=== PATIENT | male | born 1990 | race African-American/Black ===

== ENCOUNTER 2019-05-14 12:44 | Outpatient (CLI) | payer MEDICAID ==
--- NOTE | 2019-05-15 08:54 | General Progress Note ---
Assessment/Plan Assessment/Plan: UC on pred prakash on Apriso $ tabs RTC 3 months Subjective ROS Limited/Unobtainable: Yes Objective General Appearance: alert EENT: normal ENT inspection Neck: supple Cardiovascular: normal rate Respiratory/Chest: decreased breath sounds Abdomen: normal bowel sounds, non tender, soft Extremities: non-tender Ganga Leung MD May 15, 2019 08:54
[2019-05-16] MEDS ORDERED: APRISO0.375 GM PO (13:54)
[2019-05-16] MEDS ORDERED: PREDNISONE10 MG ORAL (13:54)
== END 2019-05-14 14:44 | disposition home or self-care (01) ==
LOC: PAN 12:44
DX: K51.90 Ulcerative colitis, unspecified, without complications (principal)
CPT/HCPCS: G0463

== ENCOUNTER 2019-08-13 13:14 | Outpatient (CLI) | payer MEDICAID ==
[~2019-08-13 13:14] MED LIST: APRISO0.375 GM PO; PREDNISONE10 MG ORAL
[2019-08-13 13:20] VITALS: BP 101/56
--- NOTE | 2019-08-13 13:54 | General Progress Note ---
Assessment/Plan Assessment/Plan: Progress Note date and time: 05/15/19 0854 Assessment/Plan Assessment/Plan: UC on Apriso 4 tabs RTC 3 months Subjective ROS Limited/Unobtainable: Yes Objective Last 24 Hour Vital Signs Date Time Temp Pulse Resp B/P (MAP) Pulse Ox O2 Delivery O2 Flow Rate FiO2 08/13/19 13:20 98.5 84 16 101/56 (71) 100 General Appearance: alert EENT: normal ENT inspection Neck: supple Cardiovascular: normal rate Respiratory/Chest: decreased breath sounds Abdomen: normal bowel sounds, non tender, soft Extremities: non-tender Ganga Leung MD Aug 13, 2019 13:54
== END 2019-08-13 15:14 | disposition home or self-care (01) ==
LOC: PAN 13:14
DX: K51.90 Ulcerative colitis, unspecified, without complications (principal)
CPT/HCPCS: 99212

== ENCOUNTER 2019-11-21 12:30 | Outpatient (CLI) | payer MEDICAID ==
--- NOTE | 2019-11-21 19:00 | Progress Note ---
DATE: 11/21/2019 CHIEF COMPLAINT: Rectal bleeding. HISTORY OF PRESENT ILLNESS: This is a 29-year-old male with history of ulcerative colitis, on Apriso 4 tablets a day. Apparently he has been taking medication for 10 days and having flare up. PHYSICAL EXAMINATION: GENERAL: A well-developed male, in no acute distress. HEENT: Normocephalic, atraumatic. Sclerae anicteric. NECK: Supple. No evidence of obvious lymphadenopathy. CARDIOVASCULAR: Regular rate and rhythm. Plus S1, S2. LUNGS: Clear to auscultation bilaterally. ABDOMEN: Positive bowel sounds. Soft. Minimal tenderness to palpation diffusely. No rebound. No guarding. No peritoneal sign. EXTREMITIES: No cyanosis. No clubbing. No edema. ASSESSMENT AND PLAN: This is a 29-year-old male with ulcerative colitis, most likely now in flare. Plan to start the patient on prednisone taper. Start 40 mg per week and then go down by 5 mg per week. Continue on Apriso. Patient to come back if the symptoms does not improve or he has significant abdominal pain, bleeding, or any other concern. Ganga Leung M.D. DR: PIPO JOB#: [id number] CC:
== END 2019-11-21 14:30 | disposition home or self-care (01) ==
LOC: PAN 12:30
DX: K62.5 Hemorrhage of anus and rectum (principal); K51.90 Ulcerative colitis, unspecified, without complications
CPT/HCPCS: 99212

== ENCOUNTER 2019-12-11 09:08 | Outpatient (CLI) | payer MEDICAID ==
[2019-12-11 13:58] VITALS: BP 93/65
[2019-12-11] MEDS ORDERED: PREDNISONE20 MG ORAL (14:03)
[2019-12-11] MEDS ORDERED: ZOFRAN4 M3 ORAL (14:03)
[2019-12-11] MEDS ORDERED: REGLAN10 MG ORAL (14:03)
--- NOTE | 2019-12-11 21:00 | Progress Note ---
DATE: 12/11/2019 SUBJECTIVE: Complaint of diarrhea and ulcerative colitis flare. PHYSICAL EXAMINATION: VITAL SIGNS: Blood pressure is 92/65, pulse is 114, respirations 20. HEENT: Normocephalic and atraumatic. Sclerae anicteric. NECK: Supple. No evidence of obvious lymphadenopathy. CARDIOVASCULAR: Regular rate and rhythm. Plus S1, S2. LUNGS: Clear to auscultation bilaterally. ABDOMEN: Positive bowel sounds. Soft, nontender. No rebound. No guarding. No peritoneal sign. EXTREMITIES: No cyanosis. No clubbing. No edema. ASSESSMENT AND PLAN: This is a 29-year-old male with ulcerative colitis with recent flare, who was admitted recently to [facility]. He was just discharged and currently on prednisone 40 mg daily. He still has about seven times of bowel movement per day, mostly soft. Minimum amount of bleeding. Overall, he feels that he is improving. Plan was to continue on prednisone 40 mg for another week and then we will start tapering off if the patient is stable. Continue on Apiza four tablets daily. Discontinue Protonix. I also recommended VSL#3 one tablet p.o. daily. The patient to come back next week in the office. If he is still symptomatic, we will consider change to Humira. Ganga Leung M.D. DR: LIZBETH JOB#: [id number] CC:
== END 2019-12-11 11:08 | disposition home or self-care (01) ==
LOC: PAN 09:08
DX: R19.7 Diarrhea, unspecified (principal); K51.90 Ulcerative colitis, unspecified, without complications
CPT/HCPCS: 99212

== ENCOUNTER 2019-12-19 13:00 | Outpatient (CLI) | payer MEDICAID ==
[~2019-12-19 13:00] MED LIST changes: +PREDNISONE20 MG ORAL; +REGLAN10 MG ORAL; +ZOFRAN4 M3 ORAL
== END 2019-12-19 15:00 | disposition home or self-care (01) ==
DX: K92.1 Melena (principal); K51.90 Ulcerative colitis, unspecified, without complications; Z79.899 Other long term (current) drug therapy

== ENCOUNTER 2019-12-26 15:07 | Outpatient (CLI) | payer MEDICAID ==
--- NOTE | 2019-12-26 15:10 | General Progress Note ---
Assessment/Plan Problem List: (1) Ulcerative colitis ICD Codes: K51.90 - Ulcerative colitis, unspecified, without complications SNOMED: 39689317 Assessment/Plan: on prednison 40 70 % better ccc will try to get Humira cont Apriso Subjective Allergies: Coded Allergies: No Known Allergies (Unverified , 08/14/19) Objective General Appearance: alert EENT: PERRL/EOMI Neck: supple Cardiovascular: normal rate Respiratory/Chest: lungs clear Abdomen: normal bowel sounds, non tender, soft Extremities: non-tender Ganga Leung MD Dec 26, 2019 15:10
== END 2019-12-26 17:07 | disposition home or self-care (01) ==
LOC: PAN 15:07
DX: K51.90 Ulcerative colitis, unspecified, without complications (principal)
CPT/HCPCS: 99212

== ENCOUNTER 2020-01-03 14:15 | Outpatient (CLI) | payer MEDICAID ==
[2020-01-03 14:28] VITALS: BP 106/99
== END 2020-01-03 16:15 | disposition home or self-care (01) ==
LOC: PAN 14:15
DX: R10.9 Unspecified abdominal pain (principal)
CPT/HCPCS: 99212

== ENCOUNTER 2020-02-04 13:46 | Outpatient (CLI) | payer MEDICAID ==
[2020-02-04 14:34] VITALS: BP 98/55
[2020-02-04] MEDS ORDERED: PREDNISONE5 M3 PO (14:37)
== END 2020-02-04 15:06 | disposition home or self-care (01) ==
LOC: PAN 13:46
DX: R10.9 Unspecified abdominal pain (principal)
CPT/HCPCS: 99212

== ENCOUNTER 2020-03-10 12:55 | Outpatient (CLI) | payer MEDICAID ==
[~2020-03-10 12:55] MED LIST changes: +PREDNISONE5 M3 PO
--- NOTE | 2020-03-10 15:00 | General Progress Note ---
Subjective ROS Limited/Unobtainable: Yes Allergies: Coded Allergies: No Known Allergies (Unverified , 08/14/19) Objective General Appearance: alert EENT: normal ENT inspection Neck: supple Cardiovascular: normal rate Respiratory/Chest: lungs clear Abdomen: normal bowel sounds, non tender, no organomegaly Extremities: non-tender Assessment/Plan Assessment/Plan: Assessment/Plan Problem List: (1) Ulcerative colitis ICD Codes: K51.90 - Ulcerative colitis, unspecified, without complications SNOMED: 28614618 Assessment/Plan: flaring again increase pred to 40 plan Humira continue Ganga Burch MD Mar 10, 2020 15:00
== END 2020-03-10 14:55 | disposition home or self-care (01) ==
LOC: PAN 12:55
DX: K51.90 Ulcerative colitis, unspecified, without complications (principal)
CPT/HCPCS: 99212

== ENCOUNTER 2020-04-07 12:55 | Outpatient (CLI) | payer MEDICAID ==
[2020-04-07 13:05] VITALS: BP 135/67
[2020-04-07 13:27] VITALS: BP 113/60
[2020-04-07] MEDS ORDERED: HUMIRA40 MG/0.2 SUBQ (13:29)
--- NOTE | 2020-04-07 15:40 | General Progress Note ---
Subjective ROS Limited/Unobtainable: Yes Allergies: Coded Allergies: No Known Allergies (Unverified , 08/14/19) Objective Last 24 Hour Vital Signs Date Time Temp Pulse Resp B/P (MAP) Pulse Ox O2 Delivery O2 Flow Rate FiO2 04/07/20 13:27 97.9 64 16 113/60 97 04/07/20 13:05 16 General Appearance: alert EENT: normal ENT inspection Neck: normal alignment Cardiovascular: normal rate Respiratory/Chest: decreased breath sounds Abdomen: normal bowel sounds, non tender, soft Extremities: non-tender Assessment/Plan Assessment/Plan: Assessment/Plan Problem List: (1) Ulcerative colitis ICD Codes: K51.90 - Ulcerative colitis, unspecified, without complications SNOMED: 67465566 Assessment/Plan: Humira prednisone 25 continue apriso RTC 2 weeks check labs for today Ganga Leung MD Apr 07, 2020 15:40
[2020-04-08] MEDS ORDERED: HUMIRA40 MG/0.8 SUBQ (08:24)
== END 2020-04-07 14:55 | disposition home or self-care (01) ==
LOC: PAN 12:55
DX: K51.90 Ulcerative colitis, unspecified, without complications (principal)
CPT/HCPCS: 99212

== ENCOUNTER 2020-04-21 13:43 | Outpatient (CLI) | payer MEDICAID ==
[~2020-04-21 13:43] MED LIST changes: +HUMIRA40 MG/0.2 SUBQ; +HUMIRA40 MG/0.8 SUBQ
--- NOTE | 2020-04-23 15:48 | General Progress Note ---
Subjective ROS Limited/Unobtainable: Yes Allergies: Coded Allergies: No Known Allergies (Unverified , 08/14/19) Objective General Appearance: alert EENT: normal ENT inspection Neck: normal inspection Cardiovascular: normal rate Respiratory/Chest: lungs clear Abdomen: normal bowel sounds, non tender, soft Extremities: non-tender Assessment/Plan Assessment/Plan: Assessment/Plan Problem List: (1) Ulcerative colitis ICD Codes: K51.90 - Ulcerative colitis, unspecified, without complications SNOMED: [id number] Assessment/Plan: Humira continue apriso cbc in one month Ganga Leung MD Apr 23, 2020 15:48
== END 2020-04-21 15:43 | disposition home or self-care (01) ==
LOC: PAN 13:43
DX: K51.90 Ulcerative colitis, unspecified, without complications (principal)
CPT/HCPCS: 99212

== ENCOUNTER 2020-05-19 12:38 | Outpatient (CLI) | payer MEDICAID ==
--- NOTE | 2020-05-19 13:24 | General Progress Note ---
Subjective ROS Limited/Unobtainable: Yes Allergies: Coded Allergies: No Known Allergies (Unverified , 08/14/19) Objective General Appearance: alert EENT: normal ENT inspection Neck: supple Cardiovascular: normal rate Respiratory/Chest: lungs clear Abdomen: normal bowel sounds, non tender, soft Extremities: non-tender Assessment/Plan Assessment/Plan: Assessment/Plan Problem List: (1) Ulcerative colitis ICD Codes: K51.90 - Ulcerative colitis, unspecified, without complications SNOMED: [id number] Assessment/Plan: Aracelis cbc in one month Ganga Leung MD May 19, 2020 13:23
== END 2020-05-19 14:38 | disposition home or self-care (01) ==
LOC: PAN 12:38
DX: K51.90 Ulcerative colitis, unspecified, without complications (principal)
CPT/HCPCS: 99212

== ENCOUNTER 2020-07-21 13:10 | Outpatient (CLI) | payer MEDICAID ==
[2020-07-21 13:39] VITALS: BP 114/70
--- NOTE | 2020-07-22 16:08 | General Progress Note ---
Subjective ROS Limited/Unobtainable: Yes Allergies: Coded Allergies: No Known Allergies (Unverified , 08/14/19) Objective General Appearance: alert EENT: normal ENT inspection Neck: supple Cardiovascular: normal rate Respiratory/Chest: lungs clear Abdomen: normal bowel sounds, non tender, soft Extremities: non-tender Assessment/Plan Problem List: (1) Ulcerative colitis ICD Codes: K51.90 - Ulcerative colitis, unspecified, without complications SNOMED: [id number] Assessment/Plan: on murtaza doing well rtc 3 months lab ordered Ganga Leung MD Jul 22, 2020 16:08
== END 2020-07-21 15:10 | disposition home or self-care (01) ==
LOC: PAN 13:10
DX: K51.90 Ulcerative colitis, unspecified, without complications (principal)
CPT/HCPCS: 99212